=== PATIENT | male | born 1965 | race African-American/Black ===

== ENCOUNTER 2023-05-04 16:46 | Emergency (ER) | payer MEDICAID, SELFPAY ==
[2023-05-04] VITALS (10 sets, daily range): BP systolic 128–156; BP diastolic 94–119; PULSE 96–108; RESP 13–27; TEMP 37.1; O2SAT 98–100
--- NOTE | ~2023-05-04 | CT_ITS ---
EXAMINATION: CT abdomen pelvis w con DATE: 05/04/2023 19:27 INDICATION: abdominal distention and pain, G tube in place TECHNIQUE: Computed tomography (CT) of the abdomen and pelvis was performed with 100 mL Omnipaque-350 intravenous contrast. Automated exposure control and iterative reconstruction technique were employe d. The dose-length product was 690.11 mGy-cm. COMPARISON: None. FINDINGS: Lower thorax: Uncomplicated large lingular air cyst or bulla anterior to the heart. Small air cyst in the right middle lobe. Bibasilar dependent atelectasis/scar. Mild bilateral gynecomastia. Liver: Normal. Biliary/Gallbladder: Gallbladder is normal. No bile duct dilation. Pancreas: No mass or duct dilation. Spleen: Normal. Adrenals:No mass. Kidneys: No mass, stone, or hydronephrosis. GI tract: Moderate distal esophageal and gastric wall edema. Uncomplicated appearing PEG tube. The re ctum is distended to 5.8 cm by formed stool. No small bowel dilation. Normal appendix. Mesentery/Peritoneum: No ascites, mass, or free air. Retroperitoneum: No mass. Mild atherosclerotic abdominal aortic and/or arterial calcifications. Pelvis: Moderate bladder wall thickening in a partially distended urinary bladder. Soft Tissues: Soft tissues and body wall unremarkable. Bones: No acute osseous finding. IMPRESSION: Moderate esophagitis/gastritis. Uncomplicated PEG tube, in good position. Fecal impaction, without CT evidence of stercoral colitis. Cystitis versus outlet obstruction or urinary bladder wall thickening from incomplete distention. Reviewed, dictated and finalized at location K. IMPRESSION: Moderate esophagitis/gastritis. Uncomplicated PEG tube, in good position. Fecal impaction, without CT evidence of stercoral colitis. Cystitis versus outlet obstruction or urinary bladder wall thickening from inco mplete distention.
--- NOTE | 2023-05-04 17:28 | ED.ABDPAIN ---
HPI - Abdominal Pain General Chief Complaint: Abdominal Pain Stated Complaint: Abd distended Time Seen by Provider: 05/04/23 17:09 History of Present Illness HPI narrative: Patient is a 57-year-old male presenting with abdominal distention. He is coming from a nursing facility and is reportedly ANO x2 at baseline. Today he was noted to have some abdominal distention and was complaining of diffuse abdominal pain so he was brought in for evaluation. Upon my evaluation he states that he hurts all over which is normal for him. Related Data Allergies Allergy/AdvReac Type Severity Reaction Status Date / Time Penicillins Allergy Unknown Verified 05/04/23 17:17 Review of Systems Review of Systems: All systems reviewed & are unremarkable except as noted in HPI and below Exam Narrative: GENERAL: Chronically ill-appearing, nontoxic, no acute distress HEAD: Normocephalic, atraumatic. EYES: PERRLA and EOMI. ENT: Nares clear, no rhinorrhea or epistaxis. Mucous membranes moist. NECK: Supple. CHEST: Clear to auscultation. No respiratory distress. HEART: Regular rate and rhythm ABDOMEN: Soft, G-tube in place with clean gauze overlying it, mild diffuse tenderness, no obvious distention EXTREMITIES: Normal range of motion. No edema. SKIN: Warm, dry, no rash. NEURO: No focal deficits. Alert and oriented x2. At baseline PSYCH: Normal mood and affect. Course Vital Signs Vital signs: Vital Signs Temperature 98.7 F 05/04/23 16:47 Pulse Rate 107 H 05/04/23 16:47 Respiratory Rate 13 05/04/23 16:47 Blood Pressure 128/94 H 05/04/23 16:47 Pulse Oximetry 98 05/04/23 16:47 Oxygen Delivery Room Air 05/04/23 16:47 Temperature 98.7 F 05/04/23 16:47 Pulse Rate 102 H 05/04/23 22:28 Respiratory Rate 14 05/04/23 22:28 Blood Pressure 139/97 H 05/04/23 22:28 Pulse Oximetry 100 05/04/23 22:28 Oxygen Delivery Room Air 05/04/23 16:47 MDM - Abdominal Pain MDM Narrative Medical decision making narrative: Patient is a 57-year-old male presenting with abdominal distention and diffuse pain. Patient slightly tachycardic, otherwise vitals are within normal limits. Exam is remarkable for the above. Further history from the custodial shows that an outpatient abdominal x-ray was concerning for an ileus so they brought him in for evaluation. Lab work with transaminitis, unclear baseline though outside chart review shows that he does have a history of alcohol use disorder. He denies right upper quadrant pain. CT abdomen pelvis shows moderate esophagitis and fecal impaction without evidence of stercoral colitis. UA is not indicative of infection. On my reevaluation, the patient is lying comfortably in bed. Discussed the findings on CT. Will prescribe outpatient enemas and stool softeners. Advise close PCP follow-up. Appropriate return precautions given. Discharged in stable condition. Differential Diagnosis Differential diagnosis: Likely abdominal pain, acute appendicitis, constipation, diverticulitis, pancreatitis and small bowel obstruction Medical Records Attestation: I reviewed the patient's medical records. Lab Data Attestation: I reviewed the patient's lab results. 05/04/23 17:35 05/04/23 17:35 Labs: Lab Results 05/04/23 05/04/23 05/04/23 Range/Units 17:20 17:35 17:40 WBC 8.0 (4.5-10.0) K/mm3 RBC 4.29 L (4.6-6.20) M/mm3 Hgb 13.1 L (14.0-18.0) g/dL Hct 39.0 L (42.0-52.0) % MCV 90.9 (80-100) fl MCH 30.5 (26-34) pg MCHC 33.6 (32-36) g/dl RDW 14.6 H (11.5-14.5) % Plt Count 294 (150-375) k/mm3 MPV 10.4 (7.4-10.4) fl Immature Gran % (Auto) 0.5 (0-0.5) % Neut % (Auto) 48.9 (45.5-73.1) % Lymph % (Auto) 34.1 (18.3-44.2) % Bollinger % (Auto) 14.6 H (2.6-8.5) % Eos % (Auto) 1.4 (0-4.4) % Baso % (Auto) 0.5 (0.2-1.2) % Lymph # (Auto) 2.72 (0.9-3.2) K/mm3 Bollinger # (Auto) 1.2 H (0.1-0.6) K/mm3
[2023-05-04 17:49] LABS: Basophils Percent Auto 0.5 % (0.2-1.2); Eosinophils Absolute Auto 0.1 K/mm3 (0-0.3); Eosinophils Percent Auto 1.4 % (0-4.4); Hemoglobin 13.1 g/dL (14.0-18.0); Immature Granulocyte Absolute 0.04 K/mm3 (0.00-0.031); Immature Granulocyte Percent A 0.5 % (0-0.5); Lymphocytes Absolute Auto 2.72 K/mm3 (0.9-3.2); Lymphocytes Percent Auto 34.1 % (18.3-44.2); Mean Corpuscular HGB Conc 33.6 g/dl (32-36); Mean Corpuscular Hemoglobin 30.5 pg (26-34); Mean Corpuscular Volume 90.9 fl (80-100); Mean Platelet Volume 10.4 fl (7.4-10.4); Monocytes Absolute Auto 1.2 K/mm3 (0.1-0.6); Monocytes Percent Auto 14.6 % (2.6-8.5); Neutrophils Absolute Auto 3.9 K/mm3 (1.3-6.7); Neutrophils Percent Auto 48.9 % (45.5-73.1); Platelet Count Result 294 k/mm3 (150-375); Red Blood Count 4.29 M/mm3 (4.6-6.20); Red Cell Distribution Width 14.6 % (11.5-14.5)
[2023-05-04 17:52] LABS: Appearance Urine Clear (Clear); Bacteria Urine None Seen /hpf; Bilirubin Urine 1+ (Negative); Blood Urine Negative (Negative); Color Urine Dark Yellow (Yellow); Glucose Urine UA Negative (Negative); Hyaline Casts Urine Present /lpf; Ketones Urine Negative (Negative); Leukocyte Esterase Ur Trace LEU/UL (Negative); Mucus Urine Present /lpf; Nitrate Urine Negative (Negative); Protein Urine Trace mg/dL (Negative); Specific Grav Ur 1.022 (1.001-1.035); Squamous Epithelial Cell Urine Occasional /hpf (Few); WBC Urine 0-5 /hpf
[2023-05-04 17:56] LABS: Add Urine Microscopic? YES
[2023-05-04 17:57] LABS: Alanine Aminotransferase 375 U/L (6-50); Albumin Level 4.6 g/dL (3.5-5.1); Alkaline Phosphatase 118 U/L (38-126); Anion Gap 13 mmol/L (8-16); Aspartate Amino Transferase 455 U/L (17-59); Bilirubin,Total 1.1 mg/dL (0.2-1.3); Blood Urea Nitrogen 16 mg/dL (9-20); Calcium 10.2 mg/dL (8.4-10.2); Carbon Dioxide 21 mmol/L (22-30); Chloride 100 mmol/L (98-107); Estimated CRCL calculation 93 ml/min; Estimated Glomerular Filt Rate > 60; Glucose 124 mg/dL (65-110); Lipase 228 U/L (23-300); Potassium 4.5 mmol/L (3.4-5.0); Sodium 134 mmol/L (137-145)
[2023-05-04 17:58] LABS: Lactic Acid Reflex 0.8 mmol/L (0.7-2.0)
[2023-05-04] MEDS: LACTATED RINGERS 1,000 ML 999 ML IV CONT (18:04)
--- NOTE | 2023-05-04 18:16 | PC.NURSE ---
Spoke with pt's POA regarding the pt and current plan of care. POA is his sister Belkis [phone], she states she would like updates on his care and plan of care when anything changes.
[2023-05-04] MEDS: FAMOTIDINE 20 MG/2 ML VIAL IV PUSH (20:06)
== END 2023-05-04 22:30 ==
PROVIDERS: Emergency Medicine; Emergency Provider Emergency Medicine
DX: K29.70 Gastritis, unspecified, without bleeding (principal); K56.41 Fecal impaction
CPT/HCPCS: 36415; 74177; 80053; 81001; 83605; 83690; 85025; 96361; 96374; 99284; J7120; Q9967

== ENCOUNTER 2023-06-09 07:15 | Emergency (ER) | payer MEDICAID, SELFPAY ==
[2023-06-09] VITALS (36 sets, daily range): BP systolic 115–169; BP diastolic 86–112; PULSE 105–126; RESP 14–41; TEMP 37.6; O2SAT 98–100
--- NOTE | ~2023-06-09 | CT_ITS ---
Non-contrast Head CT History: Seizure Technique: Axial non-contrast imaging of the brain was performed. Dose reduction technique was used on this scan by utilizing automated exposure control and iterative reconstruction technique. The dose -length product (DLP) was 605.33 mGy-cm. Findings: There are small, subacute to chronic low-density subdural hematomas/hygromas along the supe rior convexity, measuring up to 6 mm in maximal thickness on the right, and 5 mm in maximal thickness on the left. There is a large area cystic encephalomalacia in the anteroinferior right frontal lobe, with overlying right frontal craniotomy. Right parietal ventricular shunt catheter is present. Ventr icular system is mildly dilated. The visualized paranasal sinuses and mastoid air cells are clear. Impression: Small bilateral cerebral convexity, subacute to chronic, subdural hygromas/hematomas, as detailed abo ve. Large area of cystic encephalomalacia in the anteroinferior right frontal lobe with overlying right t emporal craniotomy. Correlate with surgical history. Ventriculostomy shunt catheter with mild dilatation of ventricular system. Reviewed, dictated and finalized at location . Impression: Small bilateral cerebral convexity, subacute to chronic, subdural hygromas/tamra clifford, as detailed above. Large area of cystic encephalomalacia in the anteroinferior right frontal lobe with overlying right temporal craniotomy. Correlate with surgical history. Ventriculostomy shunt catheter with mild dilatation of ventricular system.
--- NOTE | ~2023-06-09 | XR_ITS ---
XR chest 1V portable 06/09/2023 10:32 Indication: Congestion. Recent seizures. Procedure: AP portable chest Comparison: No prior studies for comparison. Findings: Heart size is normal. There are bilateral interstitial infiltrates which may represent inte rstitial edema or pneumonia. No pleural effusion or pneumothorax. Right IJ central line tip near the cavoatrial junction. No pneumothorax. No acute osseous abnormality. Impression: 1: Bilateral interstitial infiltrates may represent edema or pneumonia. Reviewed, dictated and finalized at location B. Impression: 1: Bilateral interstitial infiltrates may represent edema or pneumonia.
[2023-06-09] MEDS: SODIUM CHLORIDE 0.9% IV 1,000 ML 999 ML IV CONT (07:27)
--- NOTE | 2023-06-09 07:44 | ED.GENADULT ---
HPI - General Adult General Chief complaint: Seizure Stated complaint: sz Time Seen by Provider: 06/09/23 07:18 History of Present Illness HPI narrative: 57-year-old male with history of alcohol abuse and seizures presenting [facility] the ED from local [facility] for evaluation of seizure-like activity. Patient is ANO x1 at baseline. Patient does take Keppra and oxcarbazepine twice daily. Patient did not have his medications today. Patient reports the patient was having a seizure. Upon arrival by EMS patient did have some twitching of his left eyebrow and was treated with additional Versed. Upon arrival to emergency department patient is alert and communicating. Related Data Allergies Allergy/AdvReac Type Severity Reaction Status Date / Time Penicillins Allergy Unknown Verified 05/04/23 17:17 Review of Systems Review of Systems: All systems reviewed & are unremarkable except as noted in HPI and below Exam Narrative: APPEARANCE: Well-appearing HEAD: normocephalic, atraumatic. EYES: PERRLA/EOMI, conjunctivae clear. NOSE: Normal no drainage EARS:TMS clear with good light reflex. THROAT: Pharynx clear, no exudate. NECK: Supple. No adenopathy, no masses. RESPIRATORY: Airway patent, respirations nonlabored. Clear to auscultation bilaterally, no rales, rhonchi, wheezing. CARDIOVASCULAR: Regular rate and rhythm without murmurs rubs or gallops. ABDOMINAL: Soft, nontender, nondistended, normal bowel sounds MUSCULOSKELETAL: Moves all extremities. Strength/ROM intact, No edema, No calf tenderness. NEURO: Alert. Cranial nerves II through XII intact. Grossly intact SKIN: Warm, dry. Normal Color Course Course Emergency Course: 57-year-old male presented to ED for evaluation for seizure-like activity. Upon arrival to the ED patient was tachycardic and was treated with IV fluids and patient's heart rate did improve. Patient does take 2000 mg Keppra twice daily and 150 mg p.o. oxcarbazepine. Patient was treated with IV Keppra and p.o. oxcarbazepine. Patient was afebrile with a leukocytosis and a stable hemoglobin. No significant electrolyte abnormalities. Patient was negative for COVID RSV and influenza. Head CT showed no acute changes. Chest x-ray did show some interstitial edema. Patient is at his baseline and this was confirmed with the prison. Patient denies any complaints but is more alert and verbal. Patient's seizure occurred prior to receiving his seizure medications this morning. Patient was treated with his seizure meds and is back to his baseline. Patient is being discharged back to his care facility. Vital Signs Vital signs: Vital Signs Temperature 99.6 F 06/09/23 07:11 Pulse Rate 124 H 06/09/23 07:11 Respiratory Rate 24 H 06/09/23 07:11 Blood Pressure 115/86 06/09/23 07:11 Pulse Oximetry 100 06/09/23 07:11 Oxygen Delivery Room Air 06/09/23 07:11 Temperature 99.6 F 06/09/23 07:11 Pulse Rate 110 H 06/09/23 11:00 Respiratory Rate 25 H 06/09/23 11:00 Blood Pressure 150/103 H 06/09/23 11:01 Pulse Oximetry 100 06/09/23 09:18 Oxygen Delivery Room Air 06/09/23 07:11 Medical Decision Making Differential Diagnosis Differential Diagnosis: Breakthrough seizure Vital Signs Vital Signs: Vital Signs Temperature 99.6 F 06/09/23 07:11 Pulse Rate 124 H 06/09/23 07:11 Respiratory Rate 24 H 06/09/23 07:11 Blood Pressure 115/86 06/09/23 07:11 Pulse Oximetry 100 06/09/23 07:11 Oxygen Delivery Room Air 06/09/23 07:11 Temperature 99.6 F 06/09/23 07:11 Pulse Rate 110 H 06/09/23 11:00 Respiratory Rate 25 H 06/09/23 11:00 Blood Pressure 150/103 H 06/09/23 11:01 Pulse Oximetry 100 06/09/23 09:18 Oxygen Delivery Room Air 06/09/23 07:11 Lab Data Lab results reviewed: Yes I reviewed the patient's lab results. 06/09/23 08:10 06/09/23 08:10 Labs: Lab Results 06/09/23 Range/Units 08:10 WBC 9.3 (4.5-1
[2023-06-09] MEDS: levETIRAcetam 1000MG/NACL100ML 1,000 MG/100 ML BAG 400 MG IVPB ×2 (07:53→07:56)
--- NOTE | 2023-06-09 07:57 | PC.NURSE ---
Awake and talking to staff. c/o pain to legs.
[2023-06-09] MEDS: OXcarbazepine 150 MG TABLET PO (08:04)
[2023-06-09 08:20] LABS: Basophils Percent Auto 0.2 % (0.2-1.2); Hematocrit 33.8 % (42.0-52.0); Hemoglobin 11.2 g/dL (14.0-18.0); Immature Granulocyte Absolute 0.03 K/mm3 (0.00-0.031); Immature Granulocyte Percent A 0.3 % (0-0.5); Lymphocytes Absolute Auto 2.74 K/mm3 (0.9-3.2); Lymphocytes Percent Auto 29.5 % (18.3-44.2); Mean Corpuscular HGB Conc 33.1 g/dl (32-36); Mean Corpuscular Hemoglobin 30.2 pg (26-34); Mean Corpuscular Volume 91.1 fl (80-100); Mean Platelet Volume 9.4 fl (7.4-10.4); Monocytes Absolute Auto 1.3 K/mm3 (0.1-0.6); Monocytes Percent Auto 13.4 % (2.6-8.5); Neutrophils Absolute Auto 5.3 K/mm3 (1.3-6.7); Neutrophils Percent Auto 56.6 % (45.5-73.1); Platelet Count Result 284 k/mm3 (150-375); Red Blood Count 3.71 M/mm3 (4.6-6.20); Red Cell Distribution Width 13.9 % (11.5-14.5); White Blood Count 9.3 K/mm3 (4.5-10.0)
[2023-06-09 08:26] LABS: Partial Thromboplastin Time 30.3 SECONDS (22.3-36.8); Prothrombin Time 14.1 Seconds (11.1-14.7)
[2023-06-09 08:34] LABS: Alanine Aminotransferase 59 U/L (6-50); Albumin Level 4.1 g/dL (3.5-5.1); Alkaline Phosphatase 61 U/L (38-126); Anion Gap 10 mmol/L (8-16); Aspartate Amino Transferase 101 U/L (17-59); Bilirubin,Total 0.7 mg/dL (0.2-1.3); Blood Urea Nitrogen 11 mg/dL (9-20); Carbon Dioxide 23 mmol/L (22-30); Chloride 101 mmol/L (98-107); Creatine Kinase 165 U/L (55-170); Estimated CRCL calculation 95 ml/min; Estimated Glomerular Filt Rate > 60; Glucose 125 mg/dL (65-110); Potassium 3.9 mmol/L (3.4-5.0); Sodium 134 mmol/L (137-145)
[2023-06-09 08:54] LABS: Influenza A QL RT-PCR Negative (Negative); Influenza B QL RT-PCR Negative (Negative); RSV RNA, RT-PCR Negative (Negative); SARS-CoV-2 RNA PCR Negative (Negative)
== END 2023-06-09 13:23 ==
PROVIDERS: Emergency Provider Emergency Medicine
DX: G40.909 Epilepsy, unspecified, not intractable, without status epilepticus (principal); Z20.822 Contact with and (suspected) exposure to COVID-19; Z98.2 Presence of cerebrospinal fluid drainage device; G93.89 Other specified disorders of brain
CPT/HCPCS: 36415; 70450; 71045; 80053; 82550; 83605; 85025; 85610; 85730; 87637; 96365; 99284; A9270; J1953; J7030